=== PATIENT | female | born 1955 | race Native Hawaiian/Other Pacific Islander ===

== ENCOUNTER 2018-10-21 18:25 | Emergency (ER) | payer OTHER ==
--- NOTE | 2018-10-21 18:38 | Emergency Department Report ---
Blank Doc - Documentation Documentation: This is a 63-year-old female that presents with left knee and left tib-fib pain s/p fall. Denies any other injuries or complaints. This initial assessment/diagnostic orders/clinical plan/treatment(s) is/are subject to change based on patient's health status, clinical progression and re- assessment by fellow clinical providers in the ED. Further treatment and workup at subsequent clinical providers discretion. Patient/guardians urged not to elope from the ED as their condition may be serious if not clinically assessed and managed. Initial orders include: 1- Patient sent to [facility] for further evaluation and treatment 2- xrays
--- NOTE | 2018-10-21 19:46 | XRay Report ---
PROCEDURE: XR TIBIA FIBULA 2V LT TECHNIQUE: Left tibia fibula AP and lateral views HISTORY: pain COMPARISONS: FINDINGS: No fracture identified. The dislocation seen. Joint spaces are within normal limits. Vascular calcifi cations noted anterior soft tissues IMPRESSION: No acute abnormality identified. This document is electronically signed by Gomez Johnson MD., October 21 2018 07:44:26 PM ET
--- NOTE | 2018-10-21 20:00 | XRay Report ---
PROCEDURE: XR KNEE 3V LT HISTORY: knee pain FINDINGS: AP lateral and oblique views of the left knee were acquired and demonstrate no fracture or malalignment of the left knee. There is tricompartmental osteoarthritis. No joint effusion is seen. IMPRESSION: No fracture is seen in the left knee This document is electronically signed by Steve Rodriguez MD., October 21 2018 07:58:19 PM ET
[2018-10-21] MEDS ORDERED: TYLENOL PO ONE (22:22)
[2018-10-21] MEDS ORDERED: TYLENOL ONE (22:23)
--- NOTE | 2018-10-21 22:52 | Emergency Department Report ---
ED Lower Extremity HPI - General Chief Complaint: Extremity Injury, Lower Stated Complaint: FALL/LFT LEG PAIN Time Seen by Provider: 10/21/18 18:37 Source: patient Mode of arrival: Ambulatory Limitations: No Limitations - History of Present Illness Initial Comments: This is a 63-year-old female who presents with left lower extremity pain status post fall. Patient states she fell in [facility] today and hit her left knee on the scene. Patient states was bit behind her. She also reports some numbness to the anterior knee. Reports pain is worse with weightbearing. Patient denies loss of consciousness, hitting her head, swelling, MD Complaint: knee injury -: This afternoon Injury: Knee: Left Type of Injury: unknown Place: other ([facility]) Severity: moderate Severity scale (0 -10): 7 Improves With: nothing Worsens With: weight bearing Context: fall Associated Symptoms: able to partially bear weight, ambulatory - Related Data Previous Rx's Medication Instructions Recorded Last Taken Type Ibuprofen [Motrin 800 MG tab] 800 mg PO Q8HR PRN #20 tablet 10/21/18 Unknown Rx Lisinopril [Zestril TAB] 5 mg PO QDAY #30 tablet 10/21/18 Unknown Rx Menthol/Camphor [[place] 18 gm TP Q2H PRN #1 oint...g. 10/21/18 Unknown Rx Ointment] Allergies Allergy/AdvReac Type Severity Reaction Status Date / Time No Known Allergies Allergy Verified 10/21/18 18:34 ED Review of Systems ROS: Stated complaint: FALL/LFT LEG PAIN Other details as noted in HPI Constitutional: denies: chills, fever Respiratory: denies: cough, shortness of breath, wheezing Cardiovascular: denies: chest pain, palpitations Gastrointestinal: denies: abdominal pain, nausea, diarrhea Musculoskeletal: arthralgia (left knee pain and lower leg). denies: back pain, joint swelling Skin: denies: rash, lesions Neurological: denies: headache, weakness, paresthesias Psychiatric: denies: anxiety, depression ED Past Medical Hx - Past Medical History Previous Medical History?: No - Surgical History Past Surgical History?: No - Social History Smoking Status: Never Smoker Substance Use Type: None - Medications Home Medications: Home Medications Medication Instructions Recorded Confirmed Last Taken Type Ibuprofen [Motrin 800 MG tab] 800 mg PO Q8HR PRN #20 tablet 10/21/18 Unknown Rx Lisinopril [Zestril TAB] 5 mg PO QDAY #30 tablet 10/21/18 Unknown Rx Menthol/Camphor [[place] 18 gm TP Q2H PRN #1 oint...g. 10/21/18 Unknown Rx Ointment] ED Physical Exam - General Limitations: No Limitations General appearance: alert, in no apparent distress, obese (morbidly obese) - Respiratory Respiratory exam: Present: normal lung sounds bilaterally. Absent: respiratory distress - Cardiovascular Cardiovascular Exam: Present: regular rate, normal rhythm. Absent: systolic murmur, diastolic murmur, rubs, gallop - GI/Abdominal GI/Abdominal exam: Present: soft, normal bowel sounds - Expanded Lower Extremity Exam Left Hip exam: Present: normal inspection, full ROM Upper Leg exam: Present: normal inspection, full ROM Knee exam: Present: full ROM (painful range of motion), tenderness, full knee extension. Absent: swelling, abrasion, laceration, ecchymosis, deformity, crepidus, dislocation, erythema, effusion, pain w/ pronation/supination, posterior draw sign, pain/laxity with valgus, pain/laxity with varus Lower Leg exam: Present: normal inspection, full ROM Ankle exam: Present: normal inspection, full ROM Foot/Toe exam: Present: normal inspection, full ROM Neuro vascular tendon exam: Present: no vascular compromise Gait: Positive: observed and limited by pain - Neurological Exam Neurological exam: Present: alert, oriented X3 - Psychiatric Psychiatric exam: Present: normal affect, normal mood - Skin Skin exam: Present: warm, dry, intact, normal color. Absent: rash ED Course Vital Signs 10/21/18 10/21/18 10/21/18 18:37 23:17 23:47 Temperature 97.9 F 98.1 F Pulse Rate 84 71 66 Respiratory 16 16 Rate Blood Pressure 184/111 Blood Pressure 173/116 186/108 [Left] O2 Sat by Pulse 99 97 Oximetry ED Lower Extremity MDM - Radiology Data Radiology results: report reviewed PROCEDURE: XR KNEE 3V LT HISTORY: knee pain FINDINGS: AP lateral and oblique views of the left knee were acquired and demonstrate no fracture or malalignment of the left knee. There is tricompartmental osteoarthritis. No joint effusion is seen. IMPRESSION: No fracture is seen in the left knee - Medical Decision Making Patient was examined by me. Vitals are normal and patient is in no acute distress. Obtained a x-ray of the left knee and left tibia-fibula.. X-rays dictated by radiologist and no acute findings. Findings are susceptible to muscle strain. Patient informed of results. Maurizio wrap applied to left knee. Start ibuprofen and cyclobenzaprine for pain. Blood pressure elevated on arrival. Patient given tramadol and ibuprofen. Patient denies diagnosis of hypertension. Asymptomatic hypertension. Start Lisinopril 5 mg by mouth daily. Instructed to follow-up with PCP, Dr. Flores. Plan discussed with patient to discharge home and treat outpatient. He agrees with ER plan. Patient discharged home in stable condition. Follow up with PCP in 2-3 days. Critical care attestation.: If time is entered above; I have spent that time in minutes in the direct care of this critically ill patient, excluding procedure time. ED Disposition Clinical Impression: Left anterior knee pain, Asymptomatic hypertension Muscle strain of knee Qualifiers: Encounter type: initial encounter Laterality: left Qualified Code(s): S86.912A - Strain of unspecified muscle(s) and tendon(s) at lower leg level, left leg, initial encounter Lower extremity pain Qualifiers: Laterality: left Qualified Code(s): M79.605 - Pain in left leg Disposition: - TO HOME OR SELFCARE Is pt being admited?: No Does the pt Need Aspirin: No Condition: Stable Instructions: Muscle Strain (ED), Hypertension (ED), Arthralgia (ED), RICE Therapy (ED) Additional Instructions: Rest Use ice or heat on affected area for 20 minutes and off for 2 hours. Take pain medication as needed for pain. Follow up with Primary Care Provider in 2-3 days. Prescriptions: Ibuprofen [Motrin 800 MG tab] 800 mg PO Q8HR PRN #20 tablet PRN Reason: Pain , Severe (7-10) Menthol/Camphor [[place] Ointment] 18 gm TP Q2H PRN #1 oint...g. PRN Reason: Pain, Moderate (4-6) Lisinopril [Zestril TAB] 5 mg PO QDAY #30 tablet Referrals: ROSETTA ROSAS MD [Primary Care Provider] - 3-5 Days [facility] [Outside] - 3-5 Days [facility] [Outside] - 3-5 Days SHWETA MAYORGA MD [Staff Physician] - 3-5 Days Time of Disposition: 22:55
[2018-10-21] MEDS ORDERED: ULTRAM PO ONE (23:13)
[2018-10-21] MEDS ORDERED: ULTRAM ONE (23:17)
[2018-10-21 23:47] VITALS: BP 186/108
== END 2018-10-21 23:55 | disposition home or self-care (01) ==
LOC: ED 18:25
DX: S86.912A Strain of unspecified muscle(s) and tendon(s) at lower leg level, left leg, initial encounter (principal); I10 Essential (primary) hypertension; W18.30XA Fall on same level, unspecified, initial encounter; Y93.89 Activity, other specified; Y92.89 Other specified places as the place of occurrence of the external cause; Y99.8 Other external cause status